=== PATIENT | female | born 1990 | race Caucasian/White ===

== ENCOUNTER 2019-08-14 18:59 | Emergency (ER) | payer BC ==
[~2019-08-14] VITALS: Ht 162.6 cm; Wt 51.3 kg
--- NOTE | 2019-08-14 19:39 | PHYS DOC ---
Adult General Chief Complaint Chief Complaint: SKIN PROBLEM HPI HPI 28-year-old female presents with mass of her left neck. This mass has been there for about 2 weeks. The patient feels like it is still getting bigger. It is tender to the touch. It's in alignment with the posterior cervical lymph nodes on the left. The overlying skin has not been red or hot to the touch. Patient denies any trauma or injuries. She denies smoking, drug use, vaping. No family history of lymphoma or throat cancers. She denies fever or chills. Review of Systems Review of Systems Constitutional: Denies fever or chills [] Eyes: Denies change in visual acuity, redness, or eye pain [] HENT: Denies nasal congestion or sore throat [] Respiratory: Denies cough or shortness of breath [] Cardiovascular: No additional information not addressed in HPI [] GI: Denies abdominal pain, nausea, vomiting, bloody stools or diarrhea [] : Denies dysuria or hematuria [] Musculoskeletal: Denies back pain or joint pain [] Integument: Mass left neck[] Neurologic: Denies headache, focal weakness or sensory changes [] Endocrine: Denies polyuria or polydipsia [] All other systems were reviewed and found to be within normal limits, except as documented in this note. Physical Exam Physical Exam Constitutional: Well developed, well nourished, no acute distress, non-toxic appearance. [] HENT: Normocephalic, atraumatic, bilateral external ears normal, oropharynx moist, no oral exudates, nose normal. [] Eyes: PERRLA, EOMI, conjunctiva normal, no discharge. [] Neck: No 0.5 cm x 3.5 cm mass in line with the posterior cervical lymph nodes on the left[] Cardiovascular:Heart rate regular rhythm, no murmur [] Lungs & Thorax: Bilateral breath sounds clear to auscultation [] Abdomen: Bowel sounds normal, soft, no tenderness, no masses, no pulsatile masses. [] Skin: Warm, dry, no erythema, no rash. [] Back: No tenderness, no CVA tenderness. [] Extremities: No tenderness, no cyanosis, no clubbing, ROM intact, no edema. [] Neurologic: Alert and oriented X 3, normal motor function, normal sensory function, no focal deficits noted. [] Psychologic: Affect normal, judgement normal, mood normal. [] EKG EKG [] Radiology/Procedures Radiology/Procedures [] Impressions: Examination: CT SOFT TISSUE NECK W/CONTRAST History: Abdominal ultrasound, left-sided neck pain. Comparison/Correlation: 08/14/2019 ultrasound examination at Findings: Axial images of the neck were obtained following IV contrast. Sagittal and coronal reformatted images were provided. Near-complete opacification of the left maxillary sinus is noted. Visualized posterior fossa is unremarkable. Parotid and submandibular glands are unremarkable. A region of hyperenhancement and enlargement of the left adenoidal region soft tissue is present measuring 2.5 cm transverse by 1.6 cm anteroposterior by 1.6 cm longitudinal. Enlarged lymph node or other mass is present anterior to the right C1 lateral mass abutting the medial margin of the right carotid artery and this measures 1.9 cm x 1.2 cm. Circumferential soft tissue prominence about the oropharynx noted. Right level 2A lymph node measuring 1.7 cm x 1 cm is present along the posterior margin of the right internal jugular vein. Multiple enlarged lymph nodes involving the left posterior triangle are present superiorly with the largest of these measuring up to 2 cm in maximal diameter. Hyperenhancement is noted. Left level 2A lymph nodes are present along the posterior margin of the angle of the mandible but are not enlarged.. True and false cords are symmetric. Thyroid gland is unremarkable. Bilateral lower third molar impaction noted. Impression: Multiple enlarged lymph nodes are present involving the neck. Enlarged left adenoidal soft tissue. Soft tissue thickening circumferentially about the oropharynx. Correlate for underlying neoplastic or infectious/inflammatory process. Opacification of the left maxillary sinus. PQRS Compliance Statement: One or more of the following individualized dose reduction techniques were utilized for this examination: 1. Automated exposure control 2. Adjustment of the mA and/or kV according to patient size 3. Use of iterative reconstruction technique Electronically signed by: Yung Chris MD (08/14/2019 9:21 PM) [facility] DICTATED AND SIGNED BY: YUNG CHRIS MD DATE: 08/14/192120 CC: KRYSTINA CALERO DO; PCP,NO ~ NECK SOFT TISSUE History: Mass left posterior neck Comparison: None Technique: Sonographic examination of the left posterior lateral neck. Findings: Multiple hypoechoic rounded masses within the left posterior lateral neck posterior to the left inferior. Largest measures 3.0 x 2.0 x 1.6 cm, 2.3 x 1.5 x 1.3 cm and 2.2 x 1.4 x 1.2 cm. Impression: 1. Multiple indeterminant hypoechoic rounded masses within left posterior lateral neck, concerning for pathologic lymphadenopathy. Recommend CT soft tissue neck with contrast. Electronically signed by: Vinny Guzman DO (08/14/2019 8:17 PM) [facility] DICTATED AND SIGNED BY: VINNY GUZMAN DO DATE: 08/14/192016 CC: KRYSTINA CALERO DO; PCP,MARGUERITE ~ Course & Med Decision Making Course & Med Decision Making Pertinent Labs and Imaging studies reviewed. (See chart for details) The ultrasound of her neck shows multiple large lymph nodes and a CT was recommended. The CT of her neck with contrast again showed multiple large lymph nodes suggestive of infectious process or neoplastic process. See official read for more details. The patient does not appear to have other findings suggestive of infection such as fever. I have ordered a CBC with differential and a CMP to correlate with the CT findings. Labs are unremarkable. I have informed the patient of the importance of following up with this and having further evaluation. She states verbal understanding. She is stable for discharge at this time. Dragon Disclaimer Dragon Disclaimer This electronic medical record was generated, in whole or in part, using a voice recognition dictation system. Departure Departure: Impression: Primary Impression: Neck mass Disposition: 01 HOME, SELF-CARE Condition: STABLE Referrals: PCP,MARGUERITE (PCP) KRYSTINA CALERO DO Aug 14, 2019 19:39
--- NOTE | 2019-08-14 20:20 | RAD ---
NECK SOFT TISSUE History: Mass left posterior neck Comparison: None Technique: Sonographic examination of the left posterior lateral neck. Findings: Multiple hypoechoic rounded masses within the left posterior lateral neck posterior to the left inferior. Largest measures 3.0 x 2.0 x 1.6 cm, 2.3 x 1.5 x 1.3 cm and 2.2 x 1.4 x 1.2 cm. Impression: 1. Multiple indeterminant hypoechoic rounded masses within left posterior lateral neck, concerning for pathologic lymphadenopathy. Recommend CT soft tissue neck with contrast. Electronically signed by: Vinny Guzman DO (08/14/2019 8:17 PM) [facility]
[2019-08-14] MEDS ORDERED: IOHEXOL 300 MG/ML 75 ML VIAL. IV ONE (20:45)
--- NOTE | 2019-08-14 21:24 | RAD ---
Examination: CT SOFT TISSUE NECK W/CONTRAST History: Abdominal ultrasound, left-sided neck pain. Comparison/Correlation: 08/14/2019 ultrasound examination at Findings: Axial images of the neck were obtained following IV contrast. Sagittal and coronal reformatted images were provided. Near-complete opacification of the left maxillary sinus is noted. Visualized posterior fossa is unremarkable. Parotid and submandibular glands are unremarkable. A region of hyperenhancement and enlargement of the left adenoidal region soft tissue is present measuring 2.5 cm transverse by 1.6 cm anteroposterior by 1.6 cm longitudinal. Enlarged lymph node or other mass is present anterior to the right C1 lateral mass abutting the medial margin of the right carotid artery and this measures 1.9 cm x 1.2 cm. Circumferential soft tissue prominence about the oropharynx noted. Right level 2A lymph node measuring 1.7 cm x 1 cm is present along the posterior margin of the right internal jugular vein. Multiple enlarged lymph nodes involving the left posterior triangle are present superiorly with the largest of these measuring up to 2 cm in maximal diameter. Hyperenhancement is noted. Left level 2A lymph nodes are present along the posterior margin of the angle of the mandible but are not enlarged.. True and false cords are symmetric. Thyroid gland is unremarkable. Bilateral lower third molar impaction noted. Impression: Multiple enlarged lymph nodes are present involving the neck. Enlarged left adenoidal soft tissue. Soft tissue thickening circumferentially about the oropharynx. Correlate for underlying neoplastic or infectious/inflammatory process. Opacification of the left maxillary sinus. PQRS Compliance Statement: One or more of the following individualized dose reduction techniques were utilized for this examination: 1. Automated exposure control 2. Adjustment of the mA and/or kV according to patient size 3. Use of iterative reconstruction technique Electronically signed by: Yung Ott MD (08/14/2019 9:21 PM) [facility]
[2019-08-14 23:06] LABS: BASO % 1 % (0-3); EOS # 0.1 x10^3/uL (0.0-0.7); EOS % 1 % (0-3); HEMATOCRIT 38.1 % (36.0-47.0); HEMOGLOBIN 12.8 g/dL (12.0-15.5); LYMPH # 1.6 x10^3/uL (1.0-4.8); LYMPH % 29 % (24-48); MEAN CORPUSCULAR HEMOGLOBIN 31 pg (25-35); MEAN CORPUSCULAR HGB CONC 34 g/dL (31-37); MEAN CORPUSCULAR VOLUME 91 fL (79-100); MONO # 0.4 x10^3/uL (0.0-1.1); MONO % 7 % (0-9); NEUT # 3.6 x10^3uL (1.8-7.7); NEUT % 63 % (31-73); PLATELET COUNT 222 x10^3/uL (140-400); RED BLOOD COUNT 4.19 x10^6/uL (3.50-5.40); RED CELL DISTRIBUTION WIDTH 12.8 % (11.5-14.5); WHITE BLOOD COUNT 5.7 x10^3/uL (4.0-11.0)
[2019-08-14 23:14] LABS: CALCIUM 9.2 mg/dL (8.5-10.1); CREATININE 0.8 mg/dL (0.6-1.0); GFR 86.7; POTASSIUM 3.9 mmol/L (3.5-5.1)
[2019-08-14 23:19] LABS: ALBUMIN 3.9 g/dL (3.4-5.0); ALBUMIN/GLOBULIN RATIO 1.1 (1.0-1.7); TOTAL BILIRUBIN 0.6 mg/dL (0.2-1.0); TOTAL PROTEIN 7.4 g/dL (6.4-8.2)
[2019-08-14 23:35] VITALS: BP 132/87
== END 2019-08-14 23:40 | disposition home or self-care (01) ==
LOC: ER 18:59
DX: R22.1 Localized swelling, mass and lump, neck (principal); R59.9 Enlarged lymph nodes, unspecified
CPT/HCPCS: 36415; 70491; 76536; 80053; 85025; 99285; Q9967

== ENCOUNTER → 2020-07-14 | Outpatient (CLI) | payer BC | LOC: LAB 15:20 | PROVIDERS: ATTEND Nurse Practitioner Women's Health | DX: Z11.3 Encounter for screening for infections with a predominantly sexual mode of transmission (principal) | CPT/HCPCS: 86592; 86703; 86803 ==